=== PATIENT | female | born 1940 | race Caucasian/White ===

== ENCOUNTER 2016-11-28 14:03 | Day surgery (SDC) | payer MEDICARE ==
[~2016-11-28] VITALS: Ht 160 cm; Wt 93.6 kg
[~2016-11-28 14:03] MED LIST: ASPIRIN325 MG PO; BROVANA15 MCG/2 M NEB; CLOPIDOGREL75 M1 PO; CULTURELLE1 CAP PO; GABAPENTIN100 M1 PO; GABAPENTIN100 MG PO; JANUVIA25 M1 PO; JANUVIA25 MG PO; JANUVIA50 MG PO; KEFLEX500 M4 PO; LEVAQUIN500 MG PO; LOPRESSOR25 MG/TA7 PO; LOW DOSE ASPIRI81 M3 PO; METOPROLOL PO; METOPROLOL SUCC25 M1 PO; MUCINEX600 MG PO; MULTI VITAMIN1 EAC1 PO; MULTIVITAMIN1 TAB PO; PHOSLO; PHOSLO667 M1 PO; PLAVIX75 M1 PO; PRAVACHOL80 M1 PO; PRAVACHOL80 MG PO; PRAVASTATIN SOD80 M1 PO; PREDNISONE10 MG PO; PROAMATINE5 MG PO; PROTONIX40 M2 PO; PROTONIX40 MG PO; PULMICORT0.5 MG/2 M NEB; RENAL VITAMIN0.8 MG PO; SENSIPAR30 M1 PO; SILVADENE20 G1 TP; TOPROL XL25 MG PO; TYLENOL325 M1 PO; TYLENOL325 M2 PO
== END 2016-11-28 17:09 ==
LOC: RADSP 14:03 → SHSA 14:03 → RADSP 15:00
PROC: B50WYZZ Plain Radiography of Dialysis Shunt/Fistula using Other Contrast (ICD-10-PCS; principal; 2016-11-28)
PROC: 05783ZZ Dilation of Left Axillary Vein, Percutaneous Approach (ICD-10-PCS; 2016-11-28)
DX: T82.858A Stenosis of other vascular prosthetic devices, implants and grafts, initial encounter (principal); N18.6 End stage renal disease; Z99.2 Dependence on renal dialysis
CPT/HCPCS: C1725; C1769; C1874; C1887; J0690; J2250; J3010; Q9967